=== PATIENT | male | born 1995 | race Hispanic/Latino ===

== ENCOUNTER 2017-10-03 19:21 | Emergency (ER) | payer SELFPAY ==
[2017-10-03 19:33] VITALS: BP 129/77; PULSE 74; RESP 18; TEMP 98; O2SAT 100
[2017-10-03 20:36] LABS: ALB/GLOB RATIO 1.4 (1.0-2.1); ALBUMIN 4.7 g/dL (3.5-5.0); ALT/SGPT 33 U/L (21-72); AST/SGOT 24 U/L (17-59); BLOOD UREA NITROGEN 20 mg/dL (9-20); CALCIUM 9.3 mg/dl (8.6-10.4); GFR AFRICAN-AMERICAN > 60; GFR NON-AFRICAN AMERICAN > 60
[2017-10-03 20:40] LABS: BASO # 0.2 K/uL (0.0-0.2); BASO % 2.3 % (0.0-2.0); EOS # 0.1 K/uL (0.0-0.7); EOS % 1.5 % (0.0-4.0); HEMOGLOBIN 13.9 g/dL (12.0-18.0); MEAN CELL VOLUME 88.7 fL (80.0-94.0); MEAN CORPUSCULAR HEMOGLOBIN 30.5 pg (27.0-31.0); MEAN CORPUSCULAR HGB CONC 34.4 g/dL (33.0-37.0); MEAN PLATELET VOLUME 7.4 fL (7.2-11.7); MONO # 0.5 K/uL (0.0-0.8); MONO % 6.9 % (0.0-10.0); NEUT # 5.6 K/uL (1.8-7.0); NEUT % 75.3 % (50.0-75.0); RBC 4.56 Mil/uL (4.40-5.90); RED CELL DISTRIBUTION WIDTH 13.3 % (11.5-14.5); WHITE BLOOD COUNT 7.5 K/uL (4.8-10.8)
[2017-10-03 20:43] LABS: BARBITURATES, UR NEGATIVE (NEGATIVE); BENZODIAZEPINES, UR NEGATIVE (NEGATIVE); OPIATES, UR NEGATIVE (NEGATIVE); PHENCYCLIDINE, UR NEGATIVE (NEGATIVE)
[2017-10-03 20:44] LABS: SQUAMOUS EPITHIAL < 1 /hpf (0-5); URINE BACTERIA RARE (<OCC); URINE BILIRUBIN NEGATIVE (NEGATIVE); URINE BLOOD NEGATIVE (NEGATIVE); URINE CLARITY Clear (Clear); URINE COLOR Yellow (YELLOW); URINE GLUCOSE (UA) NORMAL (Normal); URINE LEUKOCYTE ESTERASE NEG Leu/uL (Negative); URINE NITRATE NEGATIVE (NEGATIVE); URINE PROTEIN NEGATIVE (NEGATIVE); URINE UROBILINOGEN NORMAL mg/dL (0.2-1.0)
--- NOTE | 2017-10-03 20:53 | C.PDOC ---
History Of Present Illness 21 year old male presents to the ED for evaluation of depression, SI. Patient was seen in the ED last night at that time patient denied any Hx of depression and anxiety patient was c/o abdominal pain. Patient was d/c at 01:00 with a diagnosis of constipation patient stayed in the Hospital hallway until 07:00 because he states he had nowhere to go. Patient is not able to explain where he was all day or what he did prior to getting to the ED. Time Seen by Provider: 10/03/17 19:55 Chief Complaint (Nursing): Psychiatric Evaluation History Per: Patient History/Exam Limitations: no limitations Onset/Duration Of Symptoms: Days Current Symptoms Are (Timing): Still Present Suicide/Self Injury Attempted (Context): None Modifying Factor(s): None Associated Symptoms: Depression, Suicidal Thoughts. denies: Suicidal Plan Involuntary Hold By: None Recent travel outside of the [place]: No Additional History Per: Patient Past Medical History Reviewed: Historical Data, Nursing Documentation, Vital Signs Vital Signs: Last Vital Signs Temp 98.0 F 10/03/17 19:30 Pulse 74 10/03/17 19:30 Resp 18 10/03/17 19:30 BP 129/77 10/03/17 19:30 Pulse Ox 100 10/03/17 21:52 - Medical History PMH: Asthma, Depression Denies: Chronic Kidney Disease Surgical History: No Surg Hx Family History: States: Unknown Family Hx - Social History Hx Alcohol Use: No Hx Substance Use: No - Immunization History Hx Tetanus Toxoid Vaccination: No Hx Influenza Vaccination: Yes Hx Pneumococcal Vaccination: No Review Of Systems Constitutional: Negative for: Fever, Chills Cardiovascular: Negative for: Chest Pain, Palpitations Respiratory: Negative for: Cough, Shortness of Breath Gastrointestinal: Negative for: Nausea, Vomiting, Abdominal Pain Skin: Negative for: Rash Neurological: Negative for: Weakness, Numbness Psych: Positive for: Depression, Suicidal ideation Physical Exam - Physical Exam Appears: Non-toxic, No Acute Distress, Other (Thin, male) Skin: Normal Color, Warm, Dry Head: Atraumatic, Normacephalic Nose: No Discharge, No Deformity Oral Mucosa: Moist Neck: Normal ROM, Supple Chest: Symmetrical Cardiovascular: Rhythm Regular, No Murmur Respiratory: Normal Breath Sounds, No Rales, No Rhonchi, No Wheezing Gastrointestinal/Abdominal: Soft, No Tenderness, No Guarding, No Rebound Extremity: Normal ROM, No Pedal Edema, No Calf Tenderness, No Deformity, No Swelling Neurological/Psych: Oriented x3, Normal Speech ED Course And Treatment - Laboratory Results Result Diagrams: 10/03/17 20:18 10/03/17 20:18 Lab Interpretation: Abnormal (tox + cannabanoids) O2 Sat by Pulse Oximetry: 100 (On RA) Pulse Ox Interpretation: Normal Reevaluation Time: 21:53 Reassessment Condition: Improved Medical Decision Making Medical Decision Making: Plan: * Blood work * UA * 1:1 Obs * multiple re-approaches with pt w and without Change Management Coordinator [place]- frustrating speaking with this pt- not forthcoming, circumlocutious, speaks both hebrew and liberian but not c/o suicidal nor homicidal issues tonight Seen last night by this MD under a different name/registration and pt was equally bizarre last night. Cold weather tonight, pt assured us he has multiple places to go and stay tonight- friends, girlfriends Stable for outpatient f/u. Suspect malingering Disposition Doctor Will See Patient In The: Office Counseled Patient/Family Regarding: Studies Performed, Diagnosis - Disposition Disposition: HOME/ ROUTINE Disposition Time: 21:56 Condition: GOOD Forms: [facility] (Romanian) - Clinical Impression Clinical Impression: Cannabis abuse - Scribe Statement The provider has reviewed the documentation as recorded by the Scribe Bautista Clark All medical record entries made by the Scribe were at my direction and personally dictated by me. I have reviewed the chart and agree that the record accurately reflects my personal performance of the history, physical exam, medical decision making, and the department course for this patient. I have also personally directed, reviewed, and agree with the discharge instructions and disposition.
== END 2017-10-03 22:13 | disposition home or self-care (01) ==
LOC: C.ER 19:21
DX: F12.10 Cannabis abuse, uncomplicated (principal)
CPT/HCPCS: 80053; 81001; 85025; 99284; G0480